=== PATIENT | female | born 1975 | race Caucasian/White ===

== ENCOUNTER 2016-12-26 07:11 | Day surgery (SDC) | payer OTHER ==
--- NOTE | ~2016-12-26 | EGD ---
EGD REPORT [facility] [address] [address] NAME: ANYI FERNANDEZ : [birth year] STATUS : REG [facility]#: [id number] AGE: 41 ADM/REG DATE : 12/26/16 MR#: [id number] REPORT SERV DATE: 12/26/16 DICTATED BY: JUAN R RADFORD DATE: 12/26/16 REPORT STATUS : Draft TRANSCRIBED BY: [facility] DATE: 12/26/16 Endoscopy Center Patient Name: Anyi Fernandez Date of : 1975 Attending MD: JUAN R RADFORD MD Procedure Date No Time: 12/26/2016 Procedure: Upper GI endoscopy Indications: Dysphagia Medicines: Propofol per Anesthesia Complications: No immediate complications. Procedure: Pre-Anesthesia Assessment: - ASA Grade Assessment: II - A patient with mild systemic disease. After obtaining informed consent, the endoscope was passed under direct vision. Throughout the procedure, the patient's blood pressure, pulse, and oxygen saturations were monitored continuously. The GIF [id number] was introduced through the mouth, and advanced to the second part of duodenum. The upper GI endoscopy was accomplished without difficulty. The patient tolerated the procedure well. Findings: Mucosal changes including ringed esophagus were found in the entire esophagus. Biopsies were taken with a cold forceps for histology. No appreciable esophageal motility was noted. In addition, a gaping lower esophageal sphincter was found. The entire examined stomach was normal. The examined duodenum was normal. Impression: - Esophageal mucosal changes consistent with eosinophilic esophagitis. Biopsied. - Normal stomach. - Normal examined duodenum. Recommendation: - The patient will be observed post-procedure, until all discharge criteria are met. - Return to previous diet today. - The findings and recommendations were discussed with the patient and their spouse. - After the procedure, if you experience any pain in abdomen or chest,shortness of breath,fever,chills,blood in stool,rectal bleeding,vomiting of any material,nausea,black stools or weakness or dizziness, GO TO THE EMERGENCY IMMEDIATELY!!!!!!!!! EGD REPORT [facility] [address] [place]. [address] NAME: ANYI FERNANDEZ : [birth year] STATUS : REG [facility] [place] PAT#: [id number] AGE: 41 ADM/REG DATE : 12/26/16 MR#: [id number] REPORT SERV DATE: 12/26/16 DICTATED BY: JUAN R RADFORD. DATE: 12/26/16 REPORT STATUS : Draft TRANSCRIBED BY: [employer] DATE: 12/26/16 Procedure Code(s): --- Professional --- 46681, Esophagogastroduodenoscopy, flexible, transoral; with biopsy, single or multiple Diagnosis Code(s): --- Professional --- K20.9, Esophagitis, unspecified R13.10, Dysphagia, unspecified CPT copyright 2013 [employer]. All rights reserved. The codes documented in this report are preliminary and upon harness builder review may be revised to meet current compliance requirements. Juan R Radford MD JUAN R RADFORD MD 12/26/2016 9:52 AM This report has been signed electronically. Number of Addenda: 0 Note Initiated On: 12/26/2016 9:25 AM Scope Withdrawal Time 0 hours 0 minutes 0 seconds [address] [place], [place] [id number]
--- NOTE | ~2016-12-26 | OP ---
Record Of Operation [facility] [address] [address] NAME: RAVINDRA FERNANDEZ : [birth year] STATUS : [place] [facility] [place] PAT#: [id number] AGE: 41 ADM/REG DATE : 12/26/16 MR#: [id number] REPORT SERV DATE: 12/26/16 DICTATED BY: JUAN R RADFORD DATE: 12/26/16 REPORT STATUS : Draft TRANSCRIBED BY: [employer] DATE: 12/26/16 DATE OF PROCEDURE: 12/26/2016 PROCEDURE: EGD and biopsy. INDICATION: This is in addition to the sedation of Diprivan. FINDING: This is in addition to the EMR note. The endoscope was passed. There were findings of some of the mild ringed esophagus which was improved from before. There were no longitudinal furrows. The EG junction was gaping with a short ring there. There was no definite hiatal hernia. The rest of the stomach and duodenum were normal. Biopsies were taken to look for response . The lining appear somewhat thickened. IMPRESSION: Findings consistent with eosinophilic esophagitis, so she may have proton pump inhibitor responsive eosinophilia. She has some thickening of the esophageal mucosa with a somewhat ringed appearance, but is not really obstructing. PLAN: We will follow up biopsies and adjust treatment as necessary. /GABE Juan R Radford M.D. / [id number] CC: Juan R Radford M.D.
[~2016-12-26 07:11] MED LIST: ALLEGRA180 PO; IMITREX50 PO; LYBREL; NEXIUM20 M1 PO
== END 2016-12-26 23:59 | disposition home or self-care (01) ==
LOC: DMU 07:11
PROVIDERS: Internal Medicine Gastroenterology
PROC: 0DB58ZX Excision of Esophagus, Via Natural or Artificial Opening Endoscopic, Diagnostic (ICD-10-PCS; principal; 2016-12-26 08:30)
DX: K20.0 Eosinophilic esophagitis (principal); R13.10 Dysphagia, unspecified; D64.9 Anemia, unspecified; G43.909 Migraine, unspecified, not intractable, without status migrainosus; K59.00 Constipation, unspecified; Z98.890 Other specified postprocedural states; Z79.899 Other long term (current) drug therapy
CPT/HCPCS: 84703; 88305